=== PATIENT | female | born 1940 | race Caucasian/White ===

== ENCOUNTER 2018-07-01 18:37 | Emergency (ER) | payer MEDICARE, OTHER ==
[~2018-07-01] VITALS: Ht 160 cm; Wt 79.3 kg
[2018-07-01] MEDS ORDERED: PERCOCET (19:22)
[2018-07-01] MEDS ORDERED: TYLENOL (19:26)
[2018-07-01] MEDS ORDERED: SODIUM CHLORIDE FLUSH 10ML SYR IVF ONE (19:30)
[2018-07-01 19:33] LABS: BASOPHILS # (AUTO) 0.05 x10^3/uL (0-0.1); BASOPHILS % (AUTO) 1 % (0-1); EOSINOPHILS # (AUTO) 0.04 x10^3/uL (0-0.4); EOSINOPHILS % (AUTO) 0 % (1-7); LYMPHOCYTES # (AUTO) 1.92 x10^3/uL (1-3.4); LYMPHOCYTES % (AUTO) 20 % (22-44); MD NO; MEAN CORPUSCULAR HEMOGLOBIN 35.6 pg (27.0-34.8); MEAN CORPUSCULAR HGB CONC 34.5 g/dL (32.4-35.8); MEAN CORPUSCULAR VOLUME 103.3 fL (80-100); MEAN PLATELET VOLUME 7.8 fL (7.4-10.4); MONOCYTES # (AUTO) 0.59 x10^3/uL (0.2-0.8); MONOCYTES % (AUTO) 6 % (2-9); NEUTROPHILS # (AUTO) 7.03 x10^3/uL (1.8-6.8); NEUTROPHILS % (AUTO) 73 % (42-75); PLATELET COUNT 349 x10^3/uL (130-400); RED BLOOD COUNT 3.94 x10^6/uL (3.82-5.3); RED CELL DISTRIBUTION WIDTH 16.4 % (9.6-15.2)
--- NOTE | 2018-07-01 19:34 | NUR ---
PT HERE WITH DAUGHTER, NOTES PT VERY HARD OF HEARING, HAS HISTORY R HIP PAIN RECENTLY STOPPED PERCOCET.
[2018-07-01 19:45] LABS: ALANINE AMINOTRANSFERASE 17 U/L (12-78); ALBUMIN 3.8 g/dL (3.4-5.0); ANION GAP 7 mmol/L (5-15); CALCIUM 9.1 mg/dL (8.5-10.1); CHLORIDE 113 mmol/L (98-107); CREATININE 0.83 mg/dL (0.55-1.02)
[2018-07-01 19:47] LABS: ALKALINE PHOSPHATASE 127 U/L (45-117); BILIRUBIN,TOTAL 0.3 mg/dL (0.2-1.0); TOTAL PROTEIN 7.4 g/dL (6.4-8.2)
[2018-07-01] MEDS ORDERED: HYDROcodone/APAP 5/325 TABLET ONE (19:48)
[2018-07-01] MEDS ORDERED: HYDROcodone/APAP 5/325 TABLET PO ONE (20:00)
[2018-07-01 20:08] LABS: TROPONIN I < 0.015 ng/mL (0.000-0.045)
--- NOTE | 2018-07-01 20:28 | NUR ---
PT REFUSING IV.
[2018-07-01 21:00] VITALS: BP 155/59
--- NOTE | 2018-07-01 21:00 | NUR ---
MINI CATH SPECIMEN OBTAINED AND SENT TO LAB, PT TOLERATED WELL.
[2018-07-01 21:13] LABS: CULTURE INDICATED? YES; MICROSCOPIC INDICATED
[2018-07-01] MEDS ORDERED: CEFDINIR 300 MG CAPSULE PO ONE (22:00)
[2018-07-01] MEDS ORDERED: CEFDINIR 300 MG CAPSULE ONE (22:13)
== END 2018-07-01 22:34 | disposition home or self-care (01) ==
LOC: ED 21:21
DX: N39.0 Urinary tract infection, site not specified (principal); Z90.710 Acquired absence of both cervix and uterus
CPT/HCPCS: 36415; 71045; 72110; 80053; 81001; 83735; 83880; 84484; 85025; 87077; 87086; 87186; 99284

== ENCOUNTER 2020-05-25 13:23 | Inpatient (IN) | payer MEDICARE ==
[~2020-05-25] VITALS: Ht 167.6 cm; Wt 83.9 kg
[~2020-05-25 13:23] MED LIST: PERCOCET; TYLENOL
[2020-05-25] MEDS ORDERED: SODIUM CHLORIDE FLUSH 10ML SYR IVF ONE (13:30)
[2020-05-25] MEDS ORDERED: ONDANSETRON 2MG/ML, 2ML IVPush ONE (13:30)
[2020-05-25] MEDS ORDERED: SODIUM CHLORIDE 0.9% 1,000ML IVBOLUS ONE (13:30)
[2020-05-25] MEDS ORDERED: MORPHINE SULFATE 4 MG/ML, 1ML IVPush PRN (13:30)
--- NOTE | 2020-05-25 13:34 | NUR ---
BIB [facility] FROM HOME. PER , PT FELL OFF COUCH YESTERDAY ONTO LEFT SIDE. PT GRIMACES WHEN LEFT SHOULDER, HAND, AND LEFT RIBS TOUCHED. HX: SEVERE DEMENTIA, DEAF, CHRONIC NECK/BACK PAIN. BASKET BRAIDER [facility]: PIV 18G RFA, 50 FENT, FSBG 97, 2L OXYGEN VIA NC. PT CONNECTED TO MONITORING. EKG COMPLETE. FALL PRECAUTIONS IN PLACE. MD HAS BEEN AT BEDSIDE FOR ASSESSMENT. PT WILL MAKE EYE CONTACT AND FOLLOW DIRECTIONS WHEN ACT IS DEMONSTRATED FIRST, MD STUCK OUT HER TONGUE AND THEN PT STUCK OUT HER TONGUE. PT 88% RA WHEN OXYGEN REMOVED, PT PLACED BACK ONTO 2L OXYGEN VIA NC. [facility] STATES WILL COME TO HOSPITAL IN A COUPLE HOURS.
[2020-05-25] MEDS ORDERED: MORPHINE SULFATE 4 MG/ML, 1ML ONE (14:06)
[2020-05-25] MEDS ORDERED: ONDANSETRON 2MG/ML, 2ML ONE (14:06)
[2020-05-25 14:10] LABS: ALANINE AMINOTRANSFERASE 15 U/L (12-78); ALBUMIN 2.9 g/dL (3.4-5.0); ANION GAP 8 mmol/L (5-15); CALCIUM 8.4 mg/dL (8.5-10.1); CHLORIDE 111 mmol/L (98-107); CREATININE 0.83 mg/dL (0.55-1.02)
--- NOTE | 2020-05-25 14:11 | NUR ---
[facility]S ADMIN PER APR. PT GOING TO XRAY.
[2020-05-25 14:12] LABS: ALKALINE PHOSPHATASE 116 U/L (45-117); BILIRUBIN,TOTAL 0.9 mg/dL (0.2-1.0); TOTAL PROTEIN 6.8 g/dL (6.4-8.2)
[2020-05-25 14:20] LABS: MICROSCOPIC INDICATED
[2020-05-25] MEDS ORDERED: NALOXONE 0.4 MG/ML, 1ML ONE (14:25)
--- NOTE | 2020-05-25 15:07 | NUR ---
PT BACK FROM IMAGING. LAB AT BEDSIDE FOR REDRAW.
--- NOTE | 2020-05-25 15:15 | NUR ---
IS AT BEDSIDE. REGISTRATION NOTIFIED. PT HAS BEEN REGISTERED UNIDENTIFIED.
[2020-05-25 15:26] LABS: INTERNATIONAL NORMALIZED RATIO 1.18 (0.93-1.1); PROTHROMBIN TIME 12.6 Seconds (9.6-11.5)
--- NOTE | 2020-05-25 15:49 | NUR ---
LAB AT BEDSIDE FOR BLOOD CX COLLECTION
[2020-05-25] MEDS ORDERED: CEFTRIAXONE PMX 1GM/50ML 50 ML ONE (15:55)
[2020-05-25] MEDS ORDERED: POTASSIUM CHLORIDE 20 MEQ TAB.ER.PRT ONE (15:55)
[2020-05-25 15:57] LABS: MEAN CORPUSCULAR HEMOGLOBIN 33.1 pg (27.0-34.8); MEAN CORPUSCULAR HGB CONC 33.3 g/dL (32.4-35.8); MEAN PLATELET VOLUME 9.2 fL (7.4-10.4); PLATELET COUNT 328 x10^3/uL (130-400); RED BLOOD COUNT 4.25 x10^6/uL (3.82-5.3); RED CELL DISTRIBUTION WIDTH 14.2 % (9.6-15.2)
--- NOTE | 2020-05-25 15:58 | NUR ---
IV ABX STARTED PER APR. 2 SETS BLOOD CX COLLECTED PRIOR TO ADMIN. POTASSIUM DISSOLVED IN APPLESAUCE, AT BEDSIDE FOR ASSISTANCE.
[2020-05-25] MEDS ORDERED: CEFTRIAXONE PMX 1GM/50ML 50 ML IVPB ONE (16:00)
[2020-05-25] MEDS ORDERED: POTASSIUM CHLORIDE 20 MEQ TAB.ER.PRT PO ONE (16:00)
[2020-05-25 16:46] LABS: EOS% (MANUAL) 1 % (1-7); LYMPH#(MANUAL) 1.55 x10^3/uL (1-3.4); LYMPHS% (MANUAL) 16 % (22-44); MONOS#(MANUAL) 0.87 x10^3/uL (0.3-2.7); MONOS% (MANUAL) 9 % (2-9); SEG#(MANUAL) 7.18 x10^3/uL (1.8-6.8); SEGS% (MANUAL) 74 % (42-75)
[2020-05-25 16:47] LABS: <PLATELET ESTIMATE> ADEQUATE; <PLT MORPHOLOGY> NORMAL PLT MORPH; <RBC MORPHOLOGY> NORMAL
--- NOTE | 2020-05-25 16:53 | NUR ---
HOSPITALIST HAS BEEN AT BEDSIDE. CLASSIFICATION CLERK AT BEDSIDE FOR SPLINT
[2020-05-25] MEDS ORDERED: DOCUSATE 100 MG CAPSULE PO PRN (17:00)
[2020-05-25] MEDS ORDERED: HYDROcodone/APAP 5/325 TABLET PO PRN (17:00)
[2020-05-25] MEDS ORDERED: POLYETHYLENE GLYCOL 17 GM PACKET PO PRN (17:00)
[2020-05-25] MEDS ORDERED: BISACODYL 10 MG SUPP PR PRN (17:00)
[2020-05-25] MEDS: SODIUM CHLORIDE 0.9% 1,000 ML IV SCH (17:16)
--- NOTE | 2020-05-25 17:58 | NUR ---
REPORT GIVEN TO WYATT WEBSTER. PTRTG TO ROOM [id number].
[2020-05-25] MEDS ORDERED: ASPI81TA45 PO (18:15)
[2020-05-25 19:24] VITALS: BP 131/71
[2020-05-25] MEDS: ENOXAPARIN 40 MG/0.4 ML SQ SCH (20:32)
[2020-05-26 00:23] VITALS: BP 140/72
[2020-05-26 04:57] LABS: BASOPHILS % (AUTO) 1 % (0-1); EOSINOPHILS % (AUTO) 3 % (1-7); LYMPHOCYTES % (AUTO) 22 % (22-44); MEAN PLATELET VOLUME 8.3 fL (7.4-10.4); MONOCYTES % (AUTO) 9 % (2-9); NEUTROPHILS % (AUTO) 65 % (42-75); PLATELET COUNT 255 x10^3/uL (130-400); RED BLOOD COUNT 3.97 x10^6/uL (3.82-5.3); RED CELL DISTRIBUTION WIDTH 14.1 % (9.6-15.2)
[2020-05-26 05:07] LABS: CHLORIDE 117 mmol/L (98-107)
[2020-05-26 05:31] LABS: ALANINE AMINOTRANSFERASE 17 U/L (12-78); ALBUMIN 2.6 g/dL (3.4-5.0); ALKALINE PHOSPHATASE 120 U/L (45-117); ANION GAP 6 mmol/L (5-15); BILIRUBIN,TOTAL 0.6 mg/dL (0.2-1.0); CREATININE 0.75 mg/dL (0.55-1.02); TOTAL PROTEIN 5.9 g/dL (6.4-8.2)
[2020-05-26] MEDS: SODIUM CHLORIDE 0.9% 1,000 ML IV SCH (06:21)
[2020-05-26 06:29] VITALS: BP 126/70
[2020-05-26 12:43] VITALS: BP 144/78
[2020-05-26] MEDS ORDERED: SODIUM CHLORIDE 0.9% 1,000 ML IV SCH (16:00)
[2020-05-26] MEDS: CEFTRIAXONE PMX 1GM/50ML 50 ML IV SCH (16:52)
[2020-05-26] MEDS ORDERED: D5%-0.9% NACL 1,000 ML IV SCH (18:00)
[2020-05-26] MEDS: MORPHINE SULFATE 4 MG/ML, 1ML IVPush PRN (18:26)
[2020-05-26 18:50] VITALS: BP 124/72
[2020-05-26] MEDS: ENOXAPARIN 40 MG/0.4 ML SQ SCH (20:58)
[2020-05-27 01:26] VITALS: BP 149/74
[2020-05-27 06:00] LABS: BASOPHILS % (AUTO) 2 % (0-1); EOSINOPHILS % (AUTO) 1 % (1-7); LYMPHOCYTES % (AUTO) 25 % (22-44); MEAN CORPUSCULAR HEMOGLOBIN 32.9 pg (27.0-34.8); MEAN CORPUSCULAR HGB CONC 33.3 g/dL (32.4-35.8); MEAN PLATELET VOLUME 8.4 fL (7.4-10.4); MONOCYTES % (AUTO) 8 % (2-9); NEUTROPHILS % (AUTO) 64 % (42-75); PLATELET COUNT 376 x10^3/uL (130-400); RED BLOOD COUNT 3.95 x10^6/uL (3.82-5.3); RED CELL DISTRIBUTION WIDTH 13.9 % (9.6-15.2)
[2020-05-27 06:13] LABS: ALBUMIN 2.7 g/dL (3.4-5.0); ANION GAP 5 mmol/L (5-15); CALCIUM 8.4 mg/dL (8.5-10.1); CHLORIDE 119 mmol/L (98-107)
[2020-05-27] MEDS: MORPHINE SULFATE 4 MG/ML, 1ML IVPush PRN ×2 (06:13→18:44)
[2020-05-27 06:16] LABS: ALANINE AMINOTRANSFERASE 14 U/L (12-78); ALKALINE PHOSPHATASE 111 U/L (45-117); BILIRUBIN,TOTAL 0.5 mg/dL (0.2-1.0); CREATININE 0.68 mg/dL (0.55-1.02)
[2020-05-27] MEDS ORDERED: D5%-0.45NACL+KCL 20MEQ 1,000 ML IV SCH (07:00)
[2020-05-27 09:57] VITALS: BP 148/78
[2020-05-27 14:24] VITALS: BP 137/79
[2020-05-27] MEDS: CEFTRIAXONE PMX 1GM/50ML 50 ML IV SCH (16:17)
[2020-05-27 19:03] VITALS: BP 143/76
[2020-05-27] MEDS: ENOXAPARIN 40 MG/0.4 ML SQ SCH (21:00)
[2020-05-28 00:33] VITALS: BP 133/96
[2020-05-28] MEDS: MORPHINE SULFATE 4 MG/ML, 1ML IVPush PRN (00:55)
[2020-05-28 05:50] LABS: BASOPHILS % (AUTO) 1 % (0-1); EOSINOPHILS % (AUTO) 2 % (1-7); LYMPHOCYTES % (AUTO) 22 % (22-44); MEAN CORPUSCULAR HEMOGLOBIN 33.2 pg (27.0-34.8); MEAN CORPUSCULAR HGB CONC 33.8 g/dL (32.4-35.8); MEAN PLATELET VOLUME 8.4 fL (7.4-10.4); MONOCYTES % (AUTO) 8 % (2-9); NEUTROPHILS % (AUTO) 67 % (42-75); PLATELET COUNT 338 x10^3/uL (130-400); RED BLOOD COUNT 3.88 x10^6/uL (3.82-5.3); RED CELL DISTRIBUTION WIDTH 13.9 % (9.6-15.2)
[2020-05-28 05:57] LABS: ANION GAP 4 mmol/L (5-15); CALCIUM 8.3 mg/dL (8.5-10.1); CHLORIDE 114 mmol/L (98-107); CREATININE 0.64 mg/dL (0.55-1.02)
[2020-05-28 07:17] VITALS: BP 130/82
[2020-05-28 15:02] VITALS: BP 155/78
[2020-05-28] MEDS: CEFTRIAXONE PMX 1GM/50ML 50 ML IV SCH (16:14)
[2020-05-28 19:58] VITALS: BP 164/84
[2020-05-28] MEDS: ACETAMINOPHEN 325 MG TABLET PO PRN (20:30)
[2020-05-28] MEDS: ENOXAPARIN 40 MG/0.4 ML SQ SCH (20:32)
[2020-05-29 01:01] VITALS: BP 149/87
[2020-05-29 05:35] LABS: BASOPHILS % (AUTO) 1 % (0-1); EOSINOPHILS % (AUTO) 2 % (1-7); LYMPHOCYTES % (AUTO) 26 % (22-44); MEAN CORPUSCULAR HEMOGLOBIN 33.6 pg (27.0-34.8); MEAN CORPUSCULAR HGB CONC 34.8 g/dL (32.4-35.8); MEAN PLATELET VOLUME 8.4 fL (7.4-10.4); MONOCYTES % (AUTO) 10 % (2-9); NEUTROPHILS % (AUTO) 62 % (42-75); PLATELET COUNT 359 x10^3/uL (130-400); RED BLOOD COUNT 4.06 x10^6/uL (3.82-5.3); RED CELL DISTRIBUTION WIDTH 13.7 % (9.6-15.2)
[2020-05-29 05:45] LABS: ANION GAP 8 mmol/L (5-15); CALCIUM 8.7 mg/dL (8.5-10.1); CHLORIDE 108 mmol/L (98-107)
[2020-05-29 05:48] LABS: CREATININE 0.52 mg/dL (0.55-1.02)
[2020-05-29 08:15] VITALS: BP 118/72
[2020-05-29] MEDS: POTASSIUM CHLORIDE 20 MEQ TAB.ER.PRT PO SCH ×3 (09:13→19:53)
[2020-05-29] MEDS: MULTIVITAMINS/MINERALS TABLET PO SCH (09:13)
[2020-05-29] MEDS: CYANOCOBALAMIN 1,000 MCG TABLET PO SCH (09:13)
[2020-05-29] MEDS ORDERED: PHARMACY INSTRUCTION MC PRN (12:00)
[2020-05-29] MEDS ORDERED: INSTRUCTION SEE COMMENTS XX PRN (12:00)
[2020-05-29 12:27] VITALS: BP 118/76
[2020-05-29] MEDS: CEFTRIAXONE PMX 1GM/50ML 50 ML IV SCH (16:09)
[2020-05-29] MEDS: ACETAMINOPHEN 325 MG TABLET PO PRN (17:58)
[2020-05-29 18:21] VITALS: BP 145/91
[2020-05-29] MEDS: ENOXAPARIN 40 MG/0.4 ML SQ SCH (19:53)
[2020-05-30 02:12] VITALS: BP 135/78
[2020-05-30 05:46] LABS: ANION GAP 7 mmol/L (5-15); CALCIUM 8.7 mg/dL (8.5-10.1); CHLORIDE 107 mmol/L (98-107)
[2020-05-30 05:47] LABS: CREATININE 0.61 mg/dL (0.55-1.02)
[2020-05-30] MEDS: ACETAMINOPHEN 325 MG TABLET PO PRN (06:17)
[2020-05-30 07:20] VITALS: BP 136/75
[2020-05-30] MEDS: MULTIVITAMINS/MINERALS TABLET PO SCH (07:55)
[2020-05-30] MEDS: POTASSIUM CHLORIDE 20 MEQ TAB.ER.PRT PO SCH (07:55)
[2020-05-30] MEDS: CYANOCOBALAMIN 1,000 MCG TABLET PO SCH (07:56)
[2020-05-30] MEDS ORDERED: NICOTINE 14MG/24 HR PATCH.TD24 ONE (09:21)
[2020-05-30] MEDS: NICOTINE 21 MG/24 HR PATCH.TD24 TD SCH (09:25)
[2020-05-30 12:55] VITALS: BP 135/75
[2020-05-30] MEDS: CEFTRIAXONE PMX 1GM/50ML 50 ML IV SCH (16:40)
[2020-05-30 18:26] VITALS: BP 159/73
[2020-05-30] MEDS: ENOXAPARIN 40 MG/0.4 ML SQ SCH (20:35)
[2020-05-31 07:56] VITALS: BP 146/77
[2020-05-31] MEDS: MULTIVITAMINS/MINERALS TABLET PO SCH (09:20)
[2020-05-31] MEDS: CYANOCOBALAMIN 1,000 MCG TABLET PO SCH (09:20)
[2020-05-31] MEDS: NICOTINE 21 MG/24 HR PATCH.TD24 TD SCH (09:25)
[2020-05-31] MEDS ORDERED: Cyanocobalamin PO (09:53)
[2020-05-31] MEDS ORDERED: TRAM50TA2 PO (09:53)
== END 2020-05-31 11:24 | disposition hospice, home (50) | DRG 70 ==
LOC: MERGE 13:23 → EDBD 13:23 → ED 15:38 → INTOOBSV 16:41 → EDIP 16:41 → OBSVTOIN 16:41 → 3N 18:51
PROVIDERS: ADMIT Hospitalist; ATTEND Internal Medicine
PROC: 2W3DX1Z Immobilization of Left Lower Arm using Splint (ICD-10-PCS; principal; 2020-05-25)
PROC: 0T9B70Z Drainage of Bladder with Drainage Device, Via Natural or Artificial Opening (ICD-10-PCS; 2020-05-25)
DX: G93.41 Metabolic encephalopathy (principal); J96.01 Acute respiratory failure with hypoxia; S52.602A Unspecified fracture of lower end of left ulna, initial encounter for closed fracture; N30.00 Acute cystitis without hematuria; D75.89 Other specified diseases of blood and blood-forming organs; E86.0 Dehydration; E87.6 Hypokalemia; R13.10 Dysphagia, unspecified; S60.00XA Contusion of unspecified finger without damage to nail, initial encounter; R62.7 Adult failure to thrive; G89.29 Other chronic pain; M54.9 Dorsalgia, unspecified; Z96.641 Presence of right artificial hip joint; Z90.710 Acquired absence of both cervix and uterus
CPT/HCPCS: 36415; 70450; 71045; 74176; 80048; 80053; 81001; 82140; 82607; 83605; 83735; 83880; 84100; 84145; 84443; 85025; 85610; 85730; 87040; 87077; 87086; 87186; 93005; 93306; 96361; 96365; 96375; 99291; G0378; J0696; J1650; J2405; J7042; J2270; J3480; J7030